=== PATIENT | female | born 1960 | race Caucasian/White ===

== ENCOUNTER 2018-09-07 12:59 | Emergency (ER) | payer BC, OTHER ==
[~2018-09-07] VITALS: Ht 165.1 cm; Wt 72.6 kg
[~2018-09-07 12:59] MED LIST: ADULT LOW DOSE81 MG PO; CARAFATE1 GM/10 ML PO; COZAAR25 MG PO; MOTRIN800 MG PO; PERCOCET 10-321 EACH; PERCOCET 5-3251 EACH PO; PRILOSEC20 MG PO; SENOKOT8.6 MG PO; TRAZODONE HCL100 MG PO
== END 2018-09-07 14:38 | disposition home or self-care (01) ==
LOC: ED 12:59
PROC: 0XQJXZZ Repair Right Hand, External Approach (ICD-10-PCS; principal; 2018-09-07)
DX: S61.411A Laceration without foreign body of right hand, initial encounter (principal); I10 Essential (primary) hypertension; G47.30 Sleep apnea, unspecified; Z90.710 Acquired absence of both cervix and uterus; Z88.2 Allergy status to sulfonamides; Z79.82 Long term (current) use of aspirin; Z79.899 Other long term (current) drug therapy; Z23 Encounter for immunization; W26.8XXA Contact with other sharp object(s), not elsewhere classified, initial encounter
CPT/HCPCS: 12001; 90471; 90715; 99282-25

== ENCOUNTER 2020-06-22 05:50 | Day surgery (SDC) | payer BC, OTHER ==
--- NOTE | 2020-06-11 13:01 | NUR ---
MIKAYLA WAS HERE FOR PRE ADMIT VISIT FOR HER TOTAL LT KNEE SURGERY SHE IS HAVING ON 06/22/20. SHE DOES NOT HAVE A WALKER, SHE IS HOPING TO BORROW ONE, SHE WAS ADVISED THAT SHE NEEDS TO BRING ONE ON DAY OF SURGERY. SHE DOES NOT HAVE ANY STAIRS IN HER HOUSE BUT THERE ARE 3 STEPS TO GET INTO HER HOUSE. SHE HAS TUB WITH NO HANDHELD SHOWER HEAD. I ADVISED HER THAT A SHOWER CHAIR MAY BE HELPFULL. HE HAS A HANDICAP TOILET, THAT WAS INSTALLED FOR HER DAD WITH [employer]ANDRAILS. SHE LIVES WITH HER , HE WILL BE TAKING HER HOME FROM THE HOSPITAL AND HEPLING HER POST OP. SHE HAS PHYSICAL THERAPY APPOINTMENT ALREADY SCHEDULED. HER WILLL BE AVAILABLE TO TAKE TO APPOINTMENTS
[~2020-06-22] VITALS: Ht 165.1 cm; Wt 67.6 kg
[~2020-06-22 05:50] MED LIST changes: +CALCIUM + D3 E1 EACH PO; +FISH OIL 1,0001 EAC2 NG; +HYDROCHLOROTH12.5 MG PO; +MAGNESIUM250 MG PO; +OMEPRAZOLE20 MG PO; +ONDANSETRON ODT8 MG PO; +PROZAC20 MG PO; +VITAMIN D31250 MC1 PO; +VITAMIN K-1500 MCG SL; +VITAMIN K100 MCG PO
[2020-06-22] MEDS ORDERED: LYSINE500 MG PO (06:13)
[2020-06-22] MEDS ORDERED: MULTI VITAMIN1 EACH PO (06:13)
[2020-06-22] MEDS ORDERED: FISH OIL 1,0001 EAC2 NG (06:14)
[2020-06-22] MEDS ORDERED: SUPER B WITH V1 EACH PO (06:14)
[2020-06-22] MEDS ORDERED: MAGNESIUM200 MG PO (06:14)
--- NOTE | 2020-06-22 08:35 | NUR ---
UPDATED SPOUSE ON PATIENT IN OR.
--- NOTE | 2020-06-22 09:21 | NUR ---
06/22/20 0921 Jazzy Farris 0901- PT ARRIVES TO PACU EASILY AROUSABLE TO VOICE. PT DOES NOT ANSWER QUESTIONS AT THIS TIME. PT FALLS RIGHT BACK TO SLEEP WHEN NOT BEING TALKED TO. RESP EVEN AND UNLABORED. OXYGEN SAT LOW TO MID 90'S ON RA. CELSO DRESSING IN PLACE IS FLASHING GREEN. ON-Q PUMP INFUSING AT 4 ML/HR. CRYOCUFF PLACED TO LEFT KNEE WITH PILLOW CASE IN BETWEEN DRESSING AND CRYOCUFF. 0907- LEFT KEL HOSE AND FOOT PUMP APPLIED TO PT'S LEFT LEG AND FOOT. 0916- PT PROVIDED WITH A WARM BLANKET PER HER REQUEST.
--- NOTE | 2020-06-22 09:55 | NUR ---
PT ALERT, ORIENTED AND SUPPORTED BY HER RASHIDA. PT SEEMS INFORMED, GAVE OUTLINE OF SCHEDULE FOR TODAY. BOTH ACKNOWLEDGE, RASHIDA WILL REMAIN. ALL OTHER QUESTIONS ASKED WERE ANSWERED. PT REQUESTED PRAYER, WILL FOLLOW
--- NOTE | 2020-06-22 09:57 | NUR ---
PATIENT BACK TO ROOM FROM RECOVERY, PBTE PATIENT BECAME NAUSEATED. PHOTOGRAPHERS' MODEL GUILHERME ADMINISTERED 4MG IV ZOFRAN. NEW ORDER FOR ANTIMETIC FROM [facility] NAJERA IF ZOFRAN NOT EFFECTIVE. PATIENT DRESSING C/D/I, KRYO IN PLACE. STRONG PEDAL PULSE. PATIENT RESTING BACK WITH EYES RESTED, PROVIDED ICE WATER AND SNACKS. NO OTHER NEEDS AT THIS TIME.
--- NOTE | 2020-06-22 10:19 | NUR ---
PATIENT REPORTS ZOFRAN INEFFECTIVE WITH NAUSEA, ADMINISTERED DROPERIDOL IV. PATIENT AWAKE ON AND OFF. ASKING QUESTIONS ABOUT URINATING, REASSURED PATIENT AND PROVIDED INSTRUCTION. PATIENT HAS NO SENSATION TO URINATE AT THIS TIME, BUT FEELS NO URGE TO URINATE. SPINAL IS AT L1 AND PATIENT IS ABLE TO WIGGLE TOES, REPORTS NO PAIN AT THIS TIME.
--- NOTE | 2020-06-22 11:03 | NUR ---
CALLED TO MEDICAL/SURGICAL FLOOR TO NOTIFY PHYSICAL THERAPY THAT PATIENT WAS READY TO BE WORKED WITH. ASSISTED PATIENT TO [facility] 2 PERSON STBY ASSIST. PATIENT TOLERATED MOVEMENT WELL WITH WALKER. NO NAUSEA IMPROVED. NOTED SOME URINE LEAKAGE TO INCONTINENT PAD WHEN STANDING UP. BILL AT BEDSIDE, PROVIDED CALL LIGHT.
--- NOTE | 2020-06-22 11:26 | NUR ---
BLADDER SCAN PATIENT >999ML OF URINE IN BLADDER. PATIENT REPORTS FEELING PRESSURE, LOWER ABDOMEN APPEARS DISTENDED. STRAIGHT CATH PATIENT, BLADDER CONTINUES TO DRAIN NOW, AND WILL REMOVE CATHETER AFTER EMPTIED.
--- NOTE | 2020-06-22 11:45 | NUR ---
STRAIGHT CATH PATIENT 1475 ML OF URINE DRAINED. PATIENT REPORTS RELIEF. LUNCH ORDERED FOR PATIENT, PHYSICAL THERAPY PLANS TO SEE PATIENT @1400. PATIENT DRESSING C/D/I. STRONG PEDAL PULSE. KRYO IN PLACE. VSS. NAUSEA RELIEVED.
--- NOTE | 2020-06-22 13:26 | NUR ---
PHYSICAL THERAPY IN ROOM WITH PATIENT FOR EVALUATION. PATIENT ATE TURKEY SANDWHICH, NO NAUSEA. APPEARS AWAKE CONVERSING WITH .
--- NOTE | 2020-06-22 14:05 | NUR ---
PHYSICAL THERAPY CLEARED PATIENT TO GO HOME. PATIENT NEEDS TO VOID BEFORE MEETING CRITERIA. UP TO BATHEROOM, 1 PERSON STBY ASSIST TO BATHROOM WITH WALKER. PROVIDED INSTRUCTION ON HOW TO USE THE KRYO CUFF.
[2020-06-22] MEDS ORDERED: XARELTO10 MG PO (15:18)
[2020-06-22] MEDS ORDERED: DICLOFENAC SODI75 MG PO (15:19)
[2020-06-22] MEDS ORDERED: ASPIRIN EC325 MG PO (15:19)
[2020-06-22] MEDS ORDERED: OXYCODONE HCL5 MG PO (15:19)
[2020-06-22] MEDS ORDERED: GABAPENTIN600 MG PO (15:19)
--- NOTE | 2020-06-22 15:30 | NUR ---
ADMINISTERING IV ANTIBIOTIC, BEGAN TO BURN WITH INFUSION. STOPPED, FLUSHED LINE. APPEARS PUFFY. DC IV, CATH INTACT. DR. LUNA INTO ROOM, UPDATED ON PATIENT CARE. NEW ORDER FOR KEFLEX 500 MG PO ONCE. DISCUSSED PATIENT UNABLE TO VOID. PATIENT HAS BEEN UP TWO TIMES, PATIENT STATES " I FEEL A LITTLE MORE SENSATION DOWN THERE BUT NOT THE URGE TO GO".
--- NOTE | 2020-06-22 15:40 | NUR ---
PT RESTING IN BED AT THIS TIME WITH SPOUSE AT BEDSIDE. ICE WATER AND COFFEE REILLED. WARM BLANKETS PROVIDED. PT STATES SHE "IS GREAT OTHER THAN CAN'T PEE." CALL LIGHT WITHIN REACH, WILL CONT TO MONITOR URINARY FUNCTION.
--- NOTE | 2020-06-22 16:43 | OR ---
[facility] [address] [place], [place] [address] Signed DATE OF OPERATION: 06/22/2020 SURGEON: Wade Santos MD PREOPERATIVE DIAGNOSIS: Severe degenerative joint disease, both knees. POSTOPERATIVE DIAGNOSIS: Severe degenerative joint disease, both knees. PROCEDURES PERFORMED: 1. Left total knee arthroplasty with Bang. 2. Biopsy, medial capsular mass. ASSISTANTS: 1. Pushpa Mcintyre PA-C, Pushpa was present and critical for all portions of procedure. 2. JAYDA Mix. ANESTHESIA: Spinal with adductor canal block. ESTIMATED BLOOD LOSS: 200 mL. TOURNIQUET TIME: Zero. Multiple biopsies were taken of the medial intracapsular mass. IMPLANTS: Jean-Paul Triathlon size 3, 12 mm insert and 32 mm patella. 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 She has had worsening of her arthritis over the years, has been treated nonoperatively with less improvement recently. Risks and benefits of operative treatment were discussed with her, and she elected to proceed. DESCRIPTION OF PROCEDURE: Electronically Signed By: WADE SANTOS MD 06/22/20 1643 PATIENT NAME: NICOLASA KULKARNI OPERATIVE REPORT DATE OF : 58 REPORT #: [id number] PHYSICIAN: WADE SANTOS MD PCP: CAMP[facility] SPARKS REPORT IS CONFIDENTIAL AND NOT TO BE RELEASED WITHOUT AUTHORIZATION [facility] [address] [place], [place] [address] Signed Once consent was obtained, she was taken to the operating room. After adequate anesthesia, she was placed on operating room table. All downside pressure points well padded. The left leg was prepped and draped in a standard sterile fashion. The knee was approached through standard anterior incision, taken through the skin and subcutaneous tissue. Medial skin flap was made. A sub-vastus approach was obtained, and the patella was mobilized laterally. The infrapatellar fat pad was excised and the MCL was elevated with a sleeve around the posteromedial corner. It was noted at this time that there was a mass or a lump in the medial capsule right at the joint line. This was approximately 2-3 cm distal to the VMO. At this point, we left it alone. The knee was flexed. The anterior horns of menisci were transected and the ACL was transected. The checkpoints were then placed for the Bang and the two computer rays, the distal wound placed through percutaneous incisions in the anteromedial tibia. The femoral wound placed in the medial femoral condyle . The leg was then registered with computer. Anatomical points were registered with the computer. Once this was accomplished, the osteophyte was removed. The robot was brought in and the straight cuts were made starting with the tibia and going through the femur. We then switched to the angled, soft and did the final two cuts. All bone pieces were removed. The bone cuts were inspected and found to be good. The menisci removed from the tibia. The posterior osteophytes removed off the femur, but no posterior release was performed. The trials were then positioned, and the knee was taken through range of motion. We then switched from a 9 to a 12 poly trial and the computer showed full extension and equal gaps in tension. We then cut sized and drilled the patella for a 32 patella. The distal femoral drill holes were made, and the proximal tibia was finished using the keel punch. Her bone was relatively soft, so we did elect to go with a hybrid prosthesis. The bone was pulse lavaged and packed with dry Ray-Radha. Cement was mixed and reached proper consistency, it was placed on the tibia and patella. It was also placed on the implants. Tibia was impacted in position first and all excess cement was removed. The polyethylene was snapped into position and the femur was impacted. The knee was then taken into extension . The patella was clamped into position. The excess cement was removed from the patella. The periarticular soft tissues were injected with 100 mL ropivacaine and Toradol mixture. The mass was actually noted at this time. This may be a result of the injection of the ropivacaine, however, it was felt to be fairly solid. The cement was allowed to harden. Once it was hardened sufficiently, remaining cement was removed. The On-Q pain pump was placed percutaneously into the adductor canal from the suprapatellar pouch. The arthrotomy was then closed using #2 Stratafix, followed by 0-Stratafix, the subcutaneous tissue, and katya for the skin. The wound was dressed with a CELSO wound VAC dressing, Frederic wrap, and she was taken to the recovery room in satisfactory condition. All sponge, needle, and instrument counts were correct. Electronically Signed By: WADE SANTOS MD 06/22/20 1643 PATIENT NAME: NICOLASA KULKARNI OPERATIVE REPORT DATE OF : 58 REPORT #: [id number] PHYSICIAN: WADE SANTOS MD PCP: CAMPOS SPARKS REPORT IS CONFIDENTIAL AND NOT TO BE RELEASED WITHOUT AUTHORIZATION [facility] [address] [address] Signed Wade Santos MD BA/MAYELINL /[id number] Copies: ~ Electronically Signed By: WADE SANTOS MD 06/22/20 1643 PATIENT NAME: NICOLASA KULKARNI OPERATIVE REPORT DATE OF : 58 REPORT #: [id number] PHYSICIAN: WADE SANTOS MD PCP: CAMPOS SPARKS REPORT IS CONFIDENTIAL AND NOT TO BE RELEASED WITHOUT AUTHORIZATION
--- NOTE | 2020-06-22 16:45 | NUR ---
PATIENT UP TO BATHROOM VOIDED 375, PVR <90 ML OF URINE WITH BLADDER SCANNER. PATIENT TRANSFERING AND AMBULATING WELL WITH WALKER. RATES PAIN 0/10 ON PAIN SCALE. VSS. DRESSING C/D/I, STRONG PEDAL PULSE. PATIENT MEETS CRITERIA, NOW GETTING DRESSED TO GO HOME.
--- NOTE | 2020-06-22 17:27 | NUR ---
PROVIDED PATIENT WITH DC EDUCAITON, DISCUSSED CARE WITH PATIENT AND . PROVIDED WHEELCHAIR RIDE TO FRONT. PATIENT TRANSFERED INTO PRIVATE VEHICLE WELL. ALL PATIENT BELONGINGS AND KRYO EQUIPMENT ARE WITH PATIENT.
--- NOTE | 2020-06-23 15:13 | PATH ---
[facility] [address] [place], [place] [address] Signed SPECIMEN(S): A LEFT MEDIAL KNEE MASS SPECIMEN SOURCE: A. LEFT MEDIAL KNEE MASS CLINICAL HISTORY: Osteoarthritis, left knee. FINAL PATHOLOGIC DIAGNOSIS: Soft tissue, left medial knee mass, excision: - Fibroadipose tissue with multiple areas of hemorrhage and hematomas. COMMENT: As part of [facility]' Quality Improvement Program, this case was reviewed by another member of our pathology staff. NAL:cml:C2NR MICROSCOPIC EXAMINATION: Histologic sections of all submitted blocks are examined by light microscopy. These findings, together with the gross examination, support the pathologic diagnosis. GROSS DESCRIPTION: The specimen, labeled "DM," and designated on the requisition "medial knee mass, left knee," is received in formalin and consists of multiple fragments of pink-madden to hemorrhagic soft tissue (1.6 x 1.2 x 0.4 cm in aggregate). The specimen is submitted entirely in cassette (A1). AC (under the direct supervision of a pathologist) The Gross Description was prepared using a voice recognition system. The report was reviewed for accuracy; however, sound-alike word errors, addition and/or deletions may occur. If there is any question about this report, please contact Client Services. PERFORMING LABORATORY: The technical component was performed by [facility], [address] [place] [address] (Grated Cheese Maker: Charmaine Blair MD; CLIA# [id number]). [facility], [address] [address] (CLIA# [id number]). PATIENT NAME: MIKAYLA KULKARNI PATHOLOGY DATE OF : 58 REPORT #: [id number] PHYSICIAN: JUSTIN PATHOLOGY PCP: CAMPOS SPARKS REPORT IS CONFIDENTIAL AND NOT TO BE RELEASED WITHOUT AUTHORIZATION [facility] [address] [place] [address] Signed Diagnostician: Bernarda Garber MD Pathologist Electronically Signed 06/23/2020 Copies: ~ PATIENT NAME: MIKAYLA KULKARNI PATHOLOGY DATE OF : 58 REPORT #: [id number] PHYSICIAN: JUSTIN PATHOLOGY PCP: CAMPOS SPARKS REPORT IS CONFIDENTIAL AND NOT TO BE RELEASED WITHOUT AUTHORIZATION
== END 2020-06-22 17:00 | disposition home or self-care (01) ==
LOC: DS 05:50
PROVIDERS: ATTEND Specialist
PROC: 8E0YXBZ Computer Assisted Procedure of Lower Extremity (ICD-10-PCS; 2020-06-22)
PROC: 0SBD0ZZ Excision of Left Knee Joint, Open Approach (ICD-10-PCS; 2020-06-22)
PROC: 0SRD0J9 Replacement of Left Knee Joint with Synthetic Substitute, Cemented, Open Approach (ICD-10-PCS; principal; 2020-06-22 06:45)
DX: M17.0 Bilateral primary osteoarthritis of knee (principal); M25.862 Other specified joint disorders, left knee; I10 Essential (primary) hypertension; F41.9 Anxiety disorder, unspecified; K21.9 Gastro-esophageal reflux disease without esophagitis; E55.9 Vitamin D deficiency, unspecified; Z79.899 Other long term (current) drug therapy; Z88.2 Allergy status to sulfonamides; G47.30 Sleep apnea, unspecified; Z87.891 Personal history of nicotine dependence; Z79.82 Long term (current) use of aspirin
CPT/HCPCS: 01402; 64447; 64450; 76942; 97116; 97161; C1713; C1776; J0690; J1100; J1790; J1885; J2001; J2250; J2370; J2405; J2704; J2795

== ENCOUNTER 2021-08-31 10:59 | Day surgery (SDC) | payer BC, OTHER ==
[~2021-08-31] VITALS: Ht 165.1 cm; Wt 69.5 kg
--- NOTE | ~2021-08-31 | OR ---
[facility] [address] [place], [place] [address] Draft DATE OF OPERATION: 08/31/2021 SURGEON: Jessica Palomo MD PREOPERATIVE DIAGNOSES: 1. Family history of colon cancer. 2. Known gastroesophageal reflux disease. POSTOPERATIVE DIAGNOSES: 1. Hiatal hernia with distal esophagitis. 2. Multiple gastric polyps. 3. Diverticulosis of colon. No evidence of polyps. PROCEDURES: 1. Esophagogastroduodenoscopy with biopsy. 2. Total colonoscopy to cecum. ANESTHESIA: Intravenous sedation, fentanyl 200 mcg and Versed 10 mg. INDICATION: This 61-year-old white woman is a patient of ESSIE Torres and last underwent colonoscopy in 2012 combined with upper endoscopy. At that time, she had mild chronic gastritis. Colonoscopy showed no evidence of adenomatous polyps. She does have family history of colon cancer in her mother and the patient herself had a hyperplastic polyp of the sigmoid in 2013. She is symptom-free generally speaking, having no bleeding, diarrhea or constipation problems. She has no hematemesis, dysphagia or upper abdominal pain. She is admitted to undergo upper endoscopy and colonoscopy. She understands the risk of bleeding, infection, and perforation. FINDINGS: The prep was quite good. Complete colonoscopy was undertaken of the cecum and is was normal except for diverticular change of the sigmoid and left colon. On upper endoscopy, she was noted to have chronic distal esophagitis. No evidence of Bello's epithelium and hiatal hernia. There were no other findings of concern. DESCRIPTION OF PROCEDURE: The patient was brought to the endoscopy suite, given topical lidocaine hypopharyngeal anesthesia in place, and given intravenous sedation with full cardiopulmonary PATIENT NAME: MIKAYLA KULKARNI OPERATIVE REPORT DATE OF : 58 REPORT #: [id number] PHYSICIAN: JESSICA PALOMO MD PCP: CAMPOS SPARKS REPORT IS CONFIDENTIAL AND NOT TO BE RELEASED WITHOUT AUTHORIZATION [facility] [address] [place], [place] [address] Draft monitoring. A bite block was placed. An Olympus video upper endoscope was passed in the hypopharynx. The vocal cords appeared normal. Scope was advanced to the esophagus without problem. In the distal portion, there was chronic inflammatory change with no evidence of Bello's epithelium, stricture or neoplasm. The scope was passed to the stomach, which had a small amount of bilious fluid within it. Rugal folds were normal. The antrum was normal. Pylorus was normal. Scope was passed through into the duodenum. The duodenum appeared normal. Biopsies were obtained to assess for celiac disease. The scope was withdrawn and biopsies then taken of the antrum for both ZEINAB and pathologic testing. Retroflexed view was undertaken showing a moderate-sized hiatal hernia. There were numerous gastric polyps, likely benign. A underwriting sales representative polyp was excised. The scope was withdrawn to the distal esophagus where chronic inflammatory change of the mucosa was noted. There was a very low-grade Schatzki's ring. Biopsies were obtained. The scope was further withdrawn and biopsies taken of the mid esophagus. The remaining esophagus was normal. Plans were then made for colonoscopy. Additional sedation was given including an additional amount of fentanyl and Versed. Digital rectal examination was normal. The Olympus video colonoscope was passed in the rectum and manipulated throughout the colon. Passage to the sigmoid was somewhat challenging on the basis of angulation deformity that was accomplished safely. She did have diverticulosis as well. The scope was advanced to the cecum. The ileocecal valve and appendiceal orifice were normal. Scope was withdrawn from that point. Examination throughout showed no sign of abnormality, only diverticular changes of the sigmoid and left colon. Retroflexed view of the rectum was normal. Scope was removed and the patient was taken to the recovery room in good condition. CONCLUDING DIAGNOSIS: Distal esophagitis with hiatal hernia; will need to ascertain if the patient is currently on medication; her medicine list does not indicate that at this time. The polyps of the stomach would likely be related to use of PPI medication. Left colon, only diverticulosis was noted. There was no evidence of polyp or neoplasm. I would recommend repeat colonoscopy in 5 years based on current guidelines for 1st degree relatives of those with family history of colon cancer (mother). She will otherwise return to the ongoing care of [facility]. PATIENT NAME: MIKAYLA KULKARNI OPERATIVE REPORT DATE OF : 58 REPORT #: [id number] PHYSICIAN: JESSICA PALOMO MD PCP: CAMPOS SPARKS REPORT IS CONFIDENTIAL AND NOT TO BE RELEASED WITHOUT AUTHORIZATION [facility] [address] [place], [place] [address] Draft MD ANITHA Mills/MODL /[id number] cc: ESSIE Torres Copies: CAMPOS SPARKS ~ PATIENT NAME: MIKAYLA KULKARNI OPERATIVE REPORT DATE OF : 58 REPORT #: [id number] PHYSICIAN: JESSICA PALOMO MD PCP: CAMPOS SPARKS REPORT IS CONFIDENTIAL AND NOT TO BE RELEASED WITHOUT AUTHORIZATION
[~2021-08-31 10:59] MED LIST changes: +ASPIRIN EC325 MG PO; +CALTRATE 600 +1 EAC1 PO; +DICLOFENAC SODI75 MG PO; +GABAPENTIN600 MG PO; +IBUPROFEN600 MG PO; +LYSINE500 MG PO; +MAGNESIUM200 MG PO; +MULTI VITAMIN1 EACH PO; +OXYCODONE HCL5 MG PO; +RED YEAST RICE600 MG PO; +SUPER B WITH V1 EACH PO; +XARELTO10 MG PO
--- NOTE | 2021-08-31 13:46 | NUR ---
08/31/21 1346 Isabella Clay 1343 PATIENT ARRIVES TO PACU RESTING WITH EYES CLOSED. OPENS EYES WITH VERBAL STIMULI, BACK TO SLEEP WHEN NOT STIMULATED. RESP EVEN AND UNLABORED, ROOM AIR SATS >95%.
--- NOTE | 2021-09-01 16:04 | PATH ---
[facility] [address] [facility] [place], [place] [address] Signed SPECIMEN(S): A DUODENAL BIOPSY SPECIMEN(S): B ANTRUM/PYLORUS BIOPSY SPECIMEN(S): C STOMACH POLYP SPECIMEN(S): D LOW ESOPHAGEAL BIOPSY SPECIMEN(S): E MID ESOPHAGEAL BIOPSY SPECIMEN SOURCE: A. DUODENAL BIOPSY B. ANTRUM/PYLORUS BIOPSY C. STOMACH POLYP D. LOW ESOPHAGEAL BIOPSY E. MID ESOPHAGEAL BIOPSY CLINICAL HISTORY: Esophagogastroduodenoscopy, colonoscopy. History of gastritis, family history of colon cancer. Post: Hiatal hernia, distal esophagitis, gastric polyp, diverticulosis. FINAL PATHOLOGIC DIAGNOSIS: A. Duodenum, biopsy: - Duodenal mucosa with no significant pathologic changes. B. Stomach, antrum/pylorus, biopsy: - Gastric antral mucosa with no significant pathologic changes. - Negative for Helicobacter pylori with HE stains. C. Stomach, polypectomy: - Fundic gland polyp. D. Esophagus, lower, biopsy: - Squamoglandular mucosa with no significant pathologic changes. E. Esophagus, mid, biopsy: - Esophageal squamous mucosa with no significant pathologic changes. - Fragment of gastric oxyntic mucosa, suggestive of gastric heterotopia/inlet patch. BRP:cml:C2NR MICROSCOPIC EXAMINATION: Histologic sections of all submitted blocks are examined by light microscopy. These findings, together with the gross examination, support the pathologic diagnosis. GROSS DESCRIPTION: Five specimens are received in five containers, labeled "DM." PATIENT NAME: SHADMIKAYLA PATHOLOGY DATE OF : 58 REPORT #: [id number] PHYSICIAN: BERNABE WHALEN PCP: CAMPOS SPARKS REPORT IS CONFIDENTIAL AND NOT TO BE RELEASED WITHOUT AUTHORIZATION [facility] [address] [place], [place] [address] Signed A. The specimen, labeled "DM, duodenum biopsy," is received in formalin and consists of two madden soft tissue fragments that measure 0.1-0.3 cm in greatest dimension. The specimen is entirely submitted in cassette (A1). B. The specimen, labeled "DM, antrum biopsy," is received in formalin and consists of two madden soft tissue fragments that measure 0.2-0.3 cm in greatest dimension. The specimen is entirely submitted in cassette (B1). C. The specimen, labeled "DM, stomach polyp," is received in formalin and consists of two madden soft tissue fragments that measure 0.2 cm in greatest dimension. The specimen is entirely submitted in cassette (C1). D. The specimen, labeled "DM, lower esophagus biopsy," is received in formalin and consists of five madden soft tissue fragments that measure 0.1-0.2 cm in greatest dimension. The specimen is entirely submitted in cassette (D1). E. The specimen, labeled "DM, mid esophagus biopsy," is received in formalin and consists of four madden soft tissue fragments that measure 0.1-0.2 cm in greatest dimension. The specimen is entirely submitted in cassette (E1). JS (under the direct supervision of a pathologist) The Gross Description was prepared using a voice recognition system. The report was reviewed for accuracy; however, sound-alike word errors, addition and/or deletions may occur. If there is any question about this report, please contact Client Services. PERFORMING LABORATORY: The technical component was performed by [facility], [address] [place] [id number] (Door Repairman: Charmaine Blair MD; CLIA# [id number]). Professional interpretation was performed by [facility], [facility] branch, [address] [address] (CLIA# [id number]). Diagnostician: Danny Singleton MD Pathologist Electronically Signed 09/01/2021 Copies: PATIENT NAME: MIKAYLA KULKARNI PATHOLOGY DATE OF : 58 REPORT #: [id number] PHYSICIAN: BERNABE PATHOLOGY PCP: CAMPOS SPARKS REPORT IS CONFIDENTIAL AND NOT TO BE RELEASED WITHOUT AUTHORIZATION [facility] [address] [place], [place] [address] Signed ~ PATIENT NAME: MIKAYLA KULKARNI PATHOLOGY DATE OF : 58 REPORT #: [id number] PHYSICIAN: BERNABE PATHOLOGY PCP: CAMPOS SPARKS REPORT IS CONFIDENTIAL AND NOT TO BE RELEASED WITHOUT AUTHORIZATION
== END 2021-08-31 14:40 | disposition home or self-care (01) ==
LOC: OPS 10:59 → DS 14:00 → OPS 14:40
PROVIDERS: ATTEND Surgery
PROC: 0DB78ZX Excision of Stomach, Pylorus, Via Natural or Artificial Opening Endoscopic, Diagnostic (ICD-10-PCS; principal; 2021-08-31 12:00)
PROC: 0DJD8ZZ Inspection of Lower Intestinal Tract, Via Natural or Artificial Opening Endoscopic (ICD-10-PCS; 2021-08-31 12:00)
DX: K31.7 Polyp of stomach and duodenum (principal); K21.9 Gastro-esophageal reflux disease without esophagitis; K20.90 Esophagitis, unspecified without bleeding; K44.9 Diaphragmatic hernia without obstruction or gangrene; I10 Essential (primary) hypertension; Z80.0 Family history of malignant neoplasm of digestive organs; Z90.49 Acquired absence of other specified parts of digestive tract; Z90.711 Acquired absence of uterus with remaining cervical stump; Z88.1 Allergy status to other antibiotic agents
CPT/HCPCS: 99153; G0500; J0690; J2250; J3010

== ENCOUNTER 2023-03-14 21:51 | Observation (INO) | payer BC, OTHER ==
[~2023-03-14] VITALS: Ht 165.1 cm; Wt 75.2 kg
--- OUTSIDE RECORDS SUMMARY | ~2023-03-14 | XMS | Continuity of Care Document ---
Demographics + + + | Address | [address] | | | [place] [address] | + + + | Preferred Language | Unknown | + + + | Marital Status | | + + + | Anglican Affiliation | Unknown | + + + | Race | White | + + + | Ethnic Group | Not or | + + + Author + + + | Author | [place] | + + + | Organization | [place] | + + + | Address | [address] | | | [place] [address] | + + + | Phone | | + + + Care Team Providers + + + + | Care Cabin Supervisor Name | Role | Phone | + [...] + + + | (no date) | Sulfa (Sulfonamide | [facility] | (unknown) | | | Antibiotics) | | | + + + + + | (no date) | trimethoprim | [facility] | (unknown) | + + + + + Encounters No information. Functional Status No information. Immunizations + + + + | date | description | facility | + + + + | 2018-09-07 00:00 | Tdap | [facility] | + + + + | 2018-09-07 00:00 | Tdap | [facility] | + + + + Medications + + + + | date | description | facility | + + + + | 2022-06-14 00:00 | FLUOXETINE HCL | [facility] | + + + + | 2022-08-01 00:00 | FLUOXETINE HCL | [facility] | + + + + | 2022-06-14 00:00 | ONDANSETRON | [facility] | + + + + | 2022-06-14 00:00 | ONDANSETRON | [facility] | + + + + | 2020-06-22 00:00 | OXYCODONE HCL | [facility] | + + + + | 2020-06-22 00:00 | OXYCODONE HCL | [facility] | + + + + | 2022-08-01 00:00 | OXYCODONE HCL | [facility] | + + + + | 2022-06-14 00:00 | OXYCODONE | [facility] | | | HCL/ACETAMINOPHEN | | + + + + | 2022-08-01 00:00 | OXYCODONE | [facility] | | | HCL/ACETAMINOPHEN | | + + + + | 2022-06-14 00:00 | OXYCODONE | [facility] | | | HCL/ACETAMINOPHEN | | + + + + | 2022-08-01 00:00 | OXYCODONE | [facility] | | | HCL/ACETAMINOPHEN | | + + + + | 2020-06-22 00:00 | RIVAROXABAN | [facility] | + + + + | 2020-06-22 00:00 | RIVAROXABAN | [facility] | + + + + | 2022-08-01 00:00 | RIVAROXABAN | [facility] | + + + + | 2022-06-14 00:00 | CALCIUM CARBONATE/VITAMIN | [facility] | | | D3 | | + + + + | 2022-08-01 00:00 | CALCIUM CARBONATE/VITAMIN | [facility] | | | D3 | | + + + + | 2022-08-01 00:00 | VITAMIN K2 | [facility] | + + + + | 2022-06-14 00:00 | Phytonadione (Vit K1) | [facility] | + + + + | 2022-08-01 00:00 | Phytonadione (Vit K1) | [facility] | + + + + | 2022-06-14 00:00 | IBUPROFEN | [facility] | + + + + | 2022-08-01 00:00 | IBUPROFEN | [facility] | + + + + | 2022-06-14 00:00 | OMEPRAZOLE | [facility] | + + + + | 2022-08-01 00:00 | OMEPRAZOLE | [facility] | + + + + | 2020-06-22 00:00 | ASPIRIN | [facility] | + + + + | 2020-06-22 00:00 | ASPIRIN | [facility] | + + + + | 2022-06-14 00:00 | LYSINE | [facility] | + + + + | 2022-08-01 00:00 | LYSINE | [facility] | + + + + | 2022-06-14 00:00 | PHYTONADIONE | [facility] | + + + + | 2022-06-14 00:00 | SUCRALFATE | [facility] | + + + + | 2022-08-01 00:00 | SUCRALFATE | [facility] | + + + + | 2022-06-14 00:00 | RED YEAST RICE | [facility] | + + + + | 2022-08-01 00:00 | RED YEAST RICE | [facility] | + + + + | 2022-06-14 00:00 | ASPIRIN | [facility] | + + + + | 2022-08-01 00:00 | ASPIRIN | [facility] | + + + + | 2020-06-22 00:00 | GABAPENTIN | [facility] | + + + + | 2020-06-22 00:00 | GABAPENTIN | [facility] | + + + + | 2022-08-01 00:00 | GABAPENTIN | [facility] | + + + + | 2022-06-14 00:00 | MAGNESIUM OXIDE | [facility] | + + + + | 2022-08-01 00:00 | MAGNESIUM OXIDE | [facility] | + + + + | 2022-06-14 00:00 | ONDANSETRON | [facility] | + + + + | 2022-08-01 00:00 | ONDANSETRON | [facility] | + + + + | 2022-06-14 00:00 | SENNOSIDES | [facility] | + + + + | 2022-08-01 00:00 | SENNOSIDES | [facility] | + + + + | 2022-08-01 00:00 | BIOTIN | [facility] | + + + + | 2022-06-14 00:00 | HYDROCHLOROTHIAZIDE | [facility] | + + + + | 2022-08-01 00:00 | HYDROCHLOROTHIAZIDE | [facility] | + + + + | 2022-06-14 00:00 | Cholecalciferol (Vitamin | [facility] | | | D3) | | + + + + | 2022-08-01 00:00 | Cholecalciferol (Vitamin | [facility] | | | D3) | | + + + + | 2020-06-22 00:00 | DICLOFENAC SODIUM | [facility] | + + + + | 2020-06-22 00:00 | DICLOFENAC SODIUM | [facility] | + + + + | 2022-06-14 00:00 | TRAZODONE HCL | [facility] | + + + + | 2022-08-01 00:00 | TRAZODONE HCL | [facility] | + + + + | 2022-06-14 00:00 | LOSARTAN POTASSIUM | [facility] | + + + + | 2022-08-01 00:00 | LOSARTAN POTASSIUM | [facility] | + + + + Problems + + + + | date | description | facility | + + + + | 2018-09-07 00:00 | Laceration of hand | [facility] | + + + + | 2018-09-07 00:00 | Laceration of hand | [facility] | + + + + | 2022-06-06 15:04 | MEDIAL EPICONDYLITIS, | [facility] | | | RIGHT ELBOW | | + + + + | 2022-06-24 00:01 | OTH SPECIFIC JOINT | [facility] | | | DERANGEMENTS OF RIGHT | | | | SHOULDER, NEC | | + + + + | 2022-07-15 11:29 | BILATERAL PRIMARY | [facility] | | | OSTEOARTHRITIS OF HIP | | + + + + | 2022-07-15 11:29 | UNILATERAL PRIMARY | [facility] | | | OSTEOARTHRITIS, UNSPE | | + + + + | 2022-07-15 11:29 | UNILATERAL PRIMARY | [facility] | | | OSTEOARTHRITIS, RIGHT KNEE | | + + + + | 2022-07-15 11:29 | EFFUSION, RIGHT KNEE | [facility] | + + + + | 2022-08-01 08:48 | VITAMIN D DEFICIENCY, | [facility] | | | UNSPECIFIED | | + + + + | 2022-08-01 08:48 | HYPERLIPIDEMIA, | [facility] | | | UNSPECIFIED | | + + + + | 2022-08-01 08:48 | OBSTRUCTIVE SLEEP APNEA | [facility] | | | (ADULT) (PEDIATRIC) | | + + + + | 2022-08-01 08:48 | OTHER ACUTE POSTPROCEDURAL | [facility] | | | PAIN | | + + + + | 2022-08-01 08:48 | Essential (primary) | [facility] | | | hypertension | | + + + + | 2022-08-01 08:48 | GASTRO-ESOPHAGEAL REFLUX | [facility] | | | DISEASE WITHOUT ESOPHAGIT | | + + + + | 2022-08-01 08:48 | UNILATERAL PRIMARY | [facility] | | | OSTEOARTHRITIS, UNSPE | | + + + + | 2022-08-01 08:48 | UNILATERAL PRIMARY | [facility] | | | OSTEOARTHRITIS, RIGHT KNEE | | + + + + | 2022-08-01 08:48 | PERSONAL HISTORY OF | [facility] | | | NICOTINE DEPENDENCE | | + + + + | 2022-08-01 08:48 | ALLERGY STATUS TO | [facility] | | | SULFONAMIDES STATUS | | + + + + | 2022-08-11 08:25 | UNILATERAL PRIMARY | [facility] | | | OSTEOARTHRITIS, RIGHT KNEE | | + + + + | 2022-08-11 08:25 | AFTERCARE FOLLOWING JOINT | [facility] | | | REPLACEMENT SURGERY | | + + + + | 2022-08-11 08:25 | 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 | | + + + + | 2022-09-13 08:20 | UNILATERAL PRIMARY | [facility] | | | OSTEOARTHRITIS, RIGHT KNEE | | + + + + | 2022-09-13 08:20 | AFTERCARE FOLLOWING JOINT | [facility] | | | REPLACEMENT SURGERY | | + + + + | 2022-09-13 08:20 | 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
--- OUTSIDE RECORDS SUMMARY | ~2023-03-14 | XMS | Continuity of Care Document ---
Demographics + + + | Address | [address] | | | [place] [address] | + + + | Preferred Language | Unknown | + + + | Marital Status | | + + + | Quaker Affiliation | Unknown | + + + | Race | White | + + + | Ethnic Group | Not or | + + + Author + + + | Author | [place] | + + + | Organization | [place] | + + + | Address | [address] | | | [place] [address] | + + + | Phone | | + + + Care Team Providers + + + + | Care Helper Metal Hanging Name | Role | Phone | + [...] + | 2018-09-07 00:00 | Tdap | [facility] | + + + + | 2018-09-07 00:00 | Tdap | [facility] | + + + + Medications + + + + | date | description | facility | + + + + | 2022-06-14 00:00 | FLUOXETINE HCL | [facility] | + + + + | 2022-08-01 00:00 | FLUOXETINE HCL | [facility] | + + + + | 2022-06-14 00:00 | ONDANSETRON | [facility] | + + + + | 2022-06-14 00:00 | ONDANSETRON | [facility] | + + + + | 2020-06-22 00:00 | OXYCODONE HCL | [facility] | + + + + | 2020-06-22 00:00 | OXYCODONE HCL | [facility] | + + + + | 2022-08-01 00:00 | OXYCODONE HCL | [facility] | + + + + | 2022-06-14 00:00 | OXYCODONE | [facility] | | | HCL/ACETAMINOPHEN | | + + + + | 2022-08-01 00:00 | OXYCODONE | [facility] | | | HCL/ACETAMINOPHEN | | + + + + | 2022-06-14 00:00 | OXYCODONE | [facility] | | | HCL/ACETAMINOPHEN | | + + + + | 2022-08-01 00:00 | OXYCODONE | [facility] | | | HCL/ACETAMINOPHEN | | + + + + | 2020-06-22 00:00 | RIVAROXABAN | [facility] | + + + + | 2020-06-22 00:00 | RIVAROXABAN | [facility] | + + + + | 2022-08-01 00:00 | RIVAROXABAN | [facility] | + + + + | 2022-06-14 00:00 | CALCIUM CARBONATE/VITAMIN | [facility] | | | D3 | | + + + + | 2022-08-01 00:00 | CALCIUM CARBONATE/VITAMIN | [facility] | | | D3 | | + + + + | 2022-08-01 00:00 | VITAMIN K2 | [facility] | + + + + | 2022-06-14 00:00 | Phytonadione (Vit K1) | [facility] | + + + + | 2022-08-01 00:00 | Phytonadione (Vit K1) | [facility] | + + + + | 2022-06-14 00:00 | IBUPROFEN | [facility] | + + + + | 2022-08-01 00:00 | IBUPROFEN | [facility] | + + + + | 2022-06-14 00:00 | OMEPRAZOLE | [facility] | + + + + | 2022-08-01 00:00 | OMEPRAZOLE | [facility] | + + + + | 2020-06-22 00:00 | ASPIRIN | [facility] | + + + + | 2020-06-22 00:00 | ASPIRIN | [facility] | + + + + | 2022-06-14 00:00 | LYSINE | [facility] | + + + + | 2022-08-01 00:00 | LYSINE | [facility] | + + + + | 2022-06-14 00:00 | PHYTONADIONE | [facility] | + + + + | 2022-06-14 00:00 | SUCRALFATE | [facility] | + + + + | 2022-08-01 00:00 | SUCRALFATE | [facility] | + + + + | 2022-06-14 00:00 | RED YEAST RICE | [facility] | + + + + | 2022-08-01 00:00 | RED YEAST RICE | [facility] | + + + + | 2022-06-14 00:00 | ASPIRIN | [facility] | + + + + | 2022-08-01 00:00 | ASPIRIN | [facility] | + + + + | 2020-06-22 00:00 | GABAPENTIN | [facility] | + + + + | 2020-06-22 00:00 | GABAPENTIN | [facility] | + + + + | 2022-08-01 00:00 | GABAPENTIN | [facility] | + + + + | 2022-06-14 00:00 | MAGNESIUM OXIDE | [facility] | + + + + | 2022-08-01 00:00 | MAGNESIUM OXIDE | [facility] | + + + + | 2022-06-14 00:00 | ONDANSETRON | [facility] | + + + + | 2022-08-01 00:00 | ONDANSETRON | [facility] | + + + + | 2022-06-14 00:00 | SENNOSIDES | [facility] | + + + + | 2022-08-01 00:00 | SENNOSIDES | [facility] | + + + + | 2022-08-01 00:00 | BIOTIN | [facility] | + + + + | 2022-06-14 00:00 | HYDROCHLOROTHIAZIDE | [facility] | + + + + | 2022-08-01 00:00 | HYDROCHLOROTHIAZIDE | [facility] | + + + + | 2022-06-14 00:00 | Cholecalciferol (Vitamin | [facility] | | | D3) | | + + + + | 2022-08-01 00:00 | Cholecalciferol (Vitamin | [facility] | | | D3) | | + + + + | 2020-06-22 00:00 | DICLOFENAC SODIUM | [facility] | + + + + | 2020-06-22 00:00 | DICLOFENAC SODIUM | [facility] | + + + + | 2022-06-14 00:00 | TRAZODONE HCL | [facility] | + + + + | 2022-08-01 00:00 | TRAZODONE HCL | [facility] | + + + + | 2022-06-14 00:00 | LOSARTAN POTASSIUM | [facility] | + + + + | 2022-08-01 00:00 | LOSARTAN POTASSIUM | [facility] | + + + + Problems + + + + | date | description | facility | + + + + | 2018-09-07 00:00 | Laceration of hand | [facility] | + + + + | 2018-09-07 00:00 | Laceration of hand | [facility] | + + + + | 2022-06-06 [...]
[~2023-03-14 21:51] MED LIST changes: +BIOTIN2500 MCG PO; +CITRUCEL POWDE454 GM PO; +ONDANSETRON ODT4 MG PO; +VITAMIN K240 MCG PO
--- NOTE | 2023-03-15 00:50 | NUR ---
PT ARRIVES VIA STRETCHER WITH DARCI Crow RN, PT ALERT AND ORIENTED. PT UP TO BATHROOM TO VOID, URINE SENT FOR LAB. PT TOLERATED AMBULATION WITH STEADY GAIT. WHEN ASKED, SHE REPORTED "I DO FEEL A LITTLE DIZZY" NO COMPLAINTS OF HANANE OR NAUSEA.
[2023-03-15 01:06] VITALS: BP 120/82
--- NOTE | 2023-03-15 01:30 | NUR ---
ADMISSION/ASSESSMENT/NIH COMPLETED SCORED 1
[2023-03-15 03:45] VITALS: BP 120/73
--- NOTE | 2023-03-15 03:48 | NUR ---
PT UP AMBULATED TO BATHROOM SUPERVISED, STEADY GAIT, PT REPORTS NO PAIN OR NAUSEA, SHE REPORTS THAT NUMBNESS/TINGLING IN HER RIGHT FOOT AND HER LIP HAS FULLY RESOLVED, SHE STILL HAS NUMBNESS/TINGLING AT RIGHT HAND.
[2023-03-15 06:24] VITALS: BP 137/75
[2023-03-15] MEDS ORDERED: TRAZODONE HCL50 MG PO (07:10)
--- NOTE | 2023-03-15 07:35 | NUR ---
REPORT REC'D FROM VIDAL CARROLL. PT TAKEN DOWN FOR MRI AROUND 0715. PT AWAKE, ALERT, TALKING PRIOR TO GOING DOWN TO MRI. SINUS RHYTHM, 50-60s ON YARD COORDINATOR. FULL ASSESSMENT TO BE DONE ONCE PATIENT RETURNS.
[2023-03-15 07:52] VITALS: BP 140/74
--- NOTE | 2023-03-15 08:02 | NUR ---
PATIENT RETURNS FROM MRI AND IS NOW BACK ON GREY PERCHER. PT REPORTS THAT THE NUMBNESS REMAINS IN RIGHT HAND, MOVES INTO FOREARM AREA, AND HAS BEEN COMING AND GOING. PT STATES NUMBNESS IN RIGHT LEG HAS RESOLVED, AND IN LOWER LIP AREA. NO FACIAL DROOP APPRECIATED. PT SPEAKING IN CLEAR SENTENCES AND REMAINS ALERT AND ORIENTED. SOLUTIONS EXECUTIVE SECURITY ARE EQUAL X4 EXT. PT'S PEDAL DORAL PEDAL PULSE ON RIGHT FOOT IS WEAKER THAN LEFT FOOT. PT REPORTS HAVING A BLOOD CLOT IN THIS LEG YEARS AGO AFTER A SURGERY, WHICH RESULTED IN HER TAKING ASPIRIN DAILY FOR. PT NOW SITTING UP ON EDGE OF BED TO EAT BREAKFAST. PT'S DAUGHTER ARRIVES TO ROOM. AM MEDS TO BE GIVEN. NIH TO BE COMPLETED WELL. WILL CONTINUE TO MONITOR.
--- NOTE | 2023-03-15 08:21 | NUR ---
QUALITY CONTROL MICROBIOLOGIST IN ROOM AT THIS TIME. PT FINISHES HER BREAKFAST. BACK IN BED INDEPENDENTLY.
--- OUTSIDE RECORDS SUMMARY | 2023-03-15 08:56 | XMS | Continuity of Care Document ---
Demographics + + + | Address | [facility] [address] | | | [place] [address] | + + + | Preferred Language | Unknown | + + + | Marital Status | | + + + | [employer] Affiliation | Unknown | + + + | Race | White | + + + | Ethnic Group | Not or | + + + Author + + + | Author | [facility] | + + + | Organization | [facility] | + + + | Address | [address] | | | [place] [address] | + + + | Phone | | + + + Care Team Providers + + + + | Care Fryer Line Helper Name | Role | Phone | + + + + Unavailable | Unavailable | + + + + Unavailable | Unavailable | + + + + Unavailable | Unavailable | + + + + Allergies and Intolerances + + + + + | date | description | facility | type | + + + + + | (no date) | Trimethoprim [facility] | | + + + + + | (no date) | Rash | [facility] | | + + + + + | (no date) | Trimethoprim | [facility] ([facility] | | + + + + + Encounters No information. Functional Status No information. Immunizations + + + + | date | description | facility | + + + + | 2018-09-07 00:00 | Tdap | [facility] | + + + + | 2018-09-07 00:00 | Tdap | [facility] | + + + + Medications + + + + | date | description | facility | + + + + | 2022-06-14 00:00 | FLUOXETINE HCL | [facility] | + + + + | 2022-08-01 00:00 | FLUOXETINE HCL | [facility] | + + + + | 2022-06-14 00:00 | ONDANSETRON | [facility] | + + + + | 2022-06-14 00:00 | ONDANSETRON | [facility] | + + + + | 2020-06-22 00:00 | OXYCODONE HCL | [facility] | + + + + | 2020-06-22 00:00 | OXYCODONE HCL | [facility] | + + + + | 2022-08-01 00:00 | OXYCODONE HCL | [facility] | + + + + | 2022-06-14 00:00 | OXYCODONE | [facility] | | | HCL/ACETAMINOPHEN | | + + + + | 2022-08-01 00:00 | OXYCODONE | [facility] | | | HCL/ACETAMINOPHEN | | + + + + | 2022-06-14 00:00 | OXYCODONE | [facility] | | | HCL/ACETAMINOPHEN | | + + + + | 2022-08-01 00:00 | OXYCODONE | [facility] | | | HCL/ACETAMINOPHEN | | + + + + | 2020-06-22 00:00 | RIVAROXABAN | [facility] | + + + + | 2020-06-22 00:00 | RIVAROXABAN | [facility] | + + + + | 2022-08-01 00:00 | RIVAROXABAN | [facility] | + + + + | 2022-06-14 00:00 | CALCIUM CARBONATE/VITAMIN | [facility] | | | D3 | | + + + + | 2022-08-01 00:00 | CALCIUM CARBONATE/VITAMIN | [facility] | | | D3 | | + + + + | 2022-08-01 00:00 | VITAMIN K2 | [facility] | + + + + | 2022-06-14 00:00 | Phytonadione (Vit K1) | [facility] | + + + + | 2022-08-01 00:00 | Phytonadione (Vit K1) | [facility] | + + + + | 2022-06-14 00:00 | IBUPROFEN | [facility] | + + + + | 2022-08-01 00:00 | IBUPROFEN | [facility] | + + + + | 2022-06-14 00:00 | OMEPRAZOLE | [facility] | + + + + | 2022-08-01 00:00 | OMEPRAZOLE | [facility] | + + + + | 2020-06-22 00:00 | ASPIRIN | [facility] | + + + + | 2020-06-22 00:00 | ASPIRIN | [facility] | + + + + | 2022-06-14 00:00 | LYSINE | [facility] | + + + + | 2022-08-01 00:00 | LYSINE | [facility] | + + + + | 2022-06-14 00:00 | PHYTONADIONE | [facility] | + + + + | 2022-06-14 00:00 | SUCRALFATE | [facility] | + + + + | 2022-08-01 00:00 | SUCRALFATE | [facility] | + + + + | 2022-06-14 00:00 | RED YEAST RICE | [facility] | + + + + | 2022-08-01 00:00 | RED YEAST RICE | [facility] | + + + + | 2022-06-14 00:00 | ASPIRIN | [facility] | + + + + | 2022-08-01 00:00 | ASPIRIN | [facility] | + + + + | 2020-06-22 00:00 | GABAPENTIN | [facility] | + + + + | 2020-06-22 00:00 | GABAPENTIN | [facility] | + + + + | 2022-08-01 00:00 | GABAPENTIN | [facility] | + + + + | 2022-06-14 00:00 | MAGNESIUM OXIDE | [facility] | + + + + | 2022-08-01 00:00 | MAGNESIUM OXIDE | [facility] | + + + + | 2022-06-14 00:00 | ONDANSETRON | [facility] | + + + + | 2022-08-01 00:00 | ONDANSETRON | [facility] | + + + + | 2022-06-14 00:00 | SENNOSIDES | [facility] | + + + + | 2022-08-01 00:00 | SENNOSIDES | [facility] | + + + + | 2022-08-01 00:00 | BIOTIN | [facility] | + + + + | 2022-06-14 00:00 | HYDROCHLOROTHIAZIDE | [facility] | + + + + | 2022-08-01 00:00 | HYDROCHLOROTHIAZIDE | [facility] | + + + + | 2022-06-14 00:00 | Cholecalciferol (Vitamin | [facility] | | | D3) | | + + + + | 2022-08-01 00:00 | Cholecalciferol (Vitamin | [facility] | | | D3) | | + + + + | 2020-06-22 00:00 | DICLOFENAC SODIUM | [facility] | + + + + | 2020-06-22 00:00 | DICLOFENAC SODIUM | [facility] | + + + + | 2022-06-14 00:00 | TRAZODONE HCL | [facility] | + + + + | 2022-08-01 00:00 | TRAZODONE HCL | [facility] | + + + + | 2022-06-14 00:00 | LOSARTAN POTASSIUM | [facility] | + + + + | 2022-08-01 00:00 | LOSARTAN POTASSIUM | [facility] | + + + + Problems + + + + | date | description | facility | + + + + | 2018-09-07 00:00 | Laceration of hand | [facility] | + + + + | 2018-09-07 00:00 | Laceration of hand | [facility] | + + + + Procedures No information. Results/Labs +--------+--------+ + +---------+--------+ + | test | date | author | facility | value | unit | | | | | | | | | interpreta | | | | | | | | tion | +--------+--------+ + +---------+--------+ + + + | Result panel 1 | + + + + + + +---------+ + + | (unknown) | (no date) | (unknown) | [facility] | (no | (units | (unknown) | | | | [facility] | [facility] | [facility] | | | | + + + + +---------+ + + + + | Result panel 2 | + + + + + + +---------+ + + | (unknown) | (no date) | (unknown) | [facility] | (no | (units | (unknown) | | | | [facility] | value) | unknown) | | | | [facility] | | | | + + + + +---------+ + + + + | Result panel 3 | + + + + + + +---------+ + + | (unknown) | (no date) | (unknown) | [facility] | (no | (units | (unknown) | | | | [facility] | value) | unknown) | | | | [facility] | | | | + + + + +---------+ + + + + | Result panel 4 | + + + + + + +---------+ + + | (unknown) | (no date) | (unknown) | [facility] | (no | (units | (unknown) | | | | [facility] | value) | unknown) | | | | [facility] | | | | + + + + +---------+ + + + + | Result panel 5 | + + + + + + +---------+ + + | (unknown) | (no date) | (unknown) | [facility] | (no | (units | (unknown) | | | | [facility] | value) | [facility]) | | | | [facility] | | | | + + + + +---------+ + + + + | Result panel 6 | + + + + + + +---------+ + + | (unknown) | (no date) | (unknown) | [facility] | (no | (units | (unknown) | | | | [facility] | value) | unknown) | | [facility] | | | | + + + + +---------+ + + + + | Result panel 7 | + + + + + + +---------+ + + | (unknown) | (no date) | (unknown) | [facility] | (no | (units | (unknown) | | | | [facility] value) | [facility]) | | | | [facility] | | | | + + + + +---------+ + + + + | Result panel 8 | + + + + + + +---------+ + + | (unknown) | (no date) | (unknown) | [facility] | (no | (units | (unknown) | | | | [facility] value) | [facility]) | | | | [facility] | | | | + + + + +---------+ + + + + | Result panel 9 | + + + + + + +---------+ + + | (unknown) | (no date) | (unknown) | [facility] | (no | (units | (unknown) | | | | [facility] value) | unknown) | | | | [facility] | | | | + + + + +---------+ + + + + | Result panel 10 | + + + + + + +---------+ + + | (unknown) | (no date) | (unknown) | [facility] | (no | (units | (unknown) | | | | [facility] value[facility] | [facility]) | | [facility] | | | | + + + + +---------+ + + + + | Result panel 11 | + + + + + + +---------+ + + | (unknown) | (no date) | (unknown) | [facility] | (no | (units | (unknown) | | | | [facility] value[facility] | [facility]) | | [facility] | | | | + + + + +---------+ + + + + | Result panel 12 | + + + + + + +---------+ + + | (unknown) | (no date) | (unknown) | [facility] | (no | (units | (unknown) | | | | [facility] value) | [facility]) | | | [facility] | | | | + + + + +---------+ + + + + | Result panel 13 | + + + + + + +---------+ + + | (unknown) | (no date) | (unknown) | [facility] | (no | (units | (unknown) | | | | [facility] value) | [facility]) | | | | [facility] | | | | + + + + +---------+ + + + + | Result panel 14 | + + + + + + +---------+ + + | (unknown) | (no date) | (unknown) | [facility] | (no | (units | (unknown) | | | | [facility] value) | [facility]) | | | | [facility] | | | | + + + + +---------+ + + + + | Result panel 15 | + + + + + + +---------+ + + | (unknown) | (no date) | (unknown) | [facility] | (no | (units | (unknown) | | | | [facility] value) | [facility]) | | | | [facility] | | | | + + + + +---------+ + + + + | Result panel 16 | + + + + + + +---------+ + + | (unknown) | (no date) | (unknown) | [facility] | (no | (units | (unknown) | | | | [facility] value) | [facility]) | | | [facility] | | | | + + + + +---------+ + + + + | Result panel 17 | + + + + + + +---------+ + + | (unknown) | (no date) | (unknown) | [facility] | (no | (units | (unknown) | | | | [facility] value) | [facility]) | | | [facility] | | | | + + + + +---------+ + + + + | Result panel 18 | + + + + + + +---------+ + + | (unknown) | (no date) | (unknown) | [facility] | (no | (units | (unknown) | | | | [facility] value) | [facility]) | | | [facility] | | | | + + + + +---------+ + + + + | Result panel 19 | + + + + + + +---------+ + + | (unknown) | (no date) | (unknown) | [facility] | (no | (units | (unknown) | | | | [facility] value) | [facility]) | | | [facility] | | | | + + + + +---------+ + + + + | Result panel 20 | + + + + + + +---------+ + + | (unknown) | (no date) | (unknown) | [facility] | (no | (units | (unknown) | | | | [facility] | [facility]) | [facility] | | | | + + + + +---------+ + + + + | Result panel 21 | + + + + + + +---------+ + + | (unknown) | (no date) | (unknown) | [facility] | (no | (units | (unknown) | | | | [facility] | [facility]) | | | [facility] | | | | + + + + +---------+ + + + + | Result panel 22 | + + + + + + +---------+ + + | (unknown) | (no date) | (unknown) | [facility] | (no | (units | (unknown) | | | | [facility] value) | [facility]) | | | [facility] | | | | + + + + +---------+ + + + + | Result panel 23 | + + + + + + +---------+ + + | (unknown) | (no date) | (unknown) | [facility] | (no | (units | (unknown) | | | | [facility] | [facility]) | | [facility] | | | | + + + + +---------+ + + + + | Result panel 24 | + + + + + + +---------+ + + | (unknown) | (no date) | (unknown) | [facility] (no | (units | (unknown) | [facility] | | [facility] | | | | + + + + +---------+ + + + + | Result panel 25 | + + + + + + +---------+ + + | (unknown) | (no date) | (unknown) | [facility] | (no | (units | (unknown) | | | | [facility] | [facility] | [facility] | | | | + + + + +---------+ + + + + | Result panel 26 | + + + + + + +---------+ + + | (unknown) | (no date) | (unknown) | [facility] | (no | (units | (unknown) | | | | [facility] | [facility] | [facility] | | | | + + + + +---------+ + + + + | Result panel 27 | + + + + + + +---------+ + + | (unknown) | (no date) | (unknown) | [facility] | (no | (units | (unknown) | | | | [facility] | [facility] | [facility] | | | | + + + + +---------+ + + + + | Result panel 28 | + + + + + + +---------+ + + | (unknown) | (no date) | (unknown) | [facility] | (no | (units | (unknown) | | | | [facility] | [facility] | | [facility] | | | | + + + + +---------+ + + + + | Result panel 29 | + + + + + + +---------+ + + | (unknown) | (no date) | (unknown) | [facility] | (no | (units | (unknown) | | | | [facility] | [facility]) | | [facility] | | | | + + + + +---------+ + + + + | Result panel 30 | + + + + + + +---------+ + + | (unknown) | (no date) | (unknown) | [facility] | (no | (units | (unknown) | | | | [facility] | [facility] | | [facility] | | | | + + + + +---------+ + + + + | Result panel 31 | + + + + + + +---------+ + + | (unknown) | (no date) | (unknown) | [facility] | (no | (units | (unknown) | | | | [facility] | [facility]) | | [facility] | | | | + + + + +---------+ + + + + | Result panel 32 | + + + + + + +---------+ + + | (unknown) | (no date) | (unknown) | [facility] | (no | (units | (unknown) | | | | [facility] | [facility]) | | [facility] | | | | + + + + +---------+ + + + + | Result panel 33 | + + + + + + +---------+ + + | (unknown) | (no date) | (unknown) | [facility] | (no | (units | (unknown) | | | | [facility] | [facility]) | | [facility] | | | | + + + + +---------+ + + + + | Result panel 34 | + + + + + + +---------+ + + | (unknown) | (no date) | (unknown) | [facility] | (no | (units | (unknown) | | | [facility] | [facility] | [facility] | | | | + + + + +---------+ + + Social History No information. Vital Signs + + + +---------+ | date | measurement | value | units | + + + +---------+ | 2022-06-14 00:00 | BMI | 25.5 | kg/m2 | + + + +---------+ | 2022-06-14 00:00 | BP_diastolic | 81 | mmHg | + + + +---------+ | 2022-06-14 00:00 | BP_systolic | 157 | mmHg | + + + +---------+ | 2022-06-14 00:00 | heart_rate | 50 | /min | + + + +---------+ | 2022-06-14 00:00 | height_metric | 165.1 | cm | + + + +---------+ | 2022-06-14 00:00 | height_standard | 65 | in | + + + +---------+ | 2022-06-14 00:00 | o2_saturation | 99 | % | + + + +---------+ | 2022-06-14 00:00 | respiration_rate | 16 | /min | + + + +---------+ | 2022-06-14 00:00 | temperature_metric | 36.67 | C | | | | | | + + + +---------+ | 2022-06-14 00:00 | | 98 | F | | | temperature_standar | | | | | d | | | + + + +---------+ | 2022-06-14 00:00 | weight_metric | 69.4 | kg | + + + +---------+ | 2022-06-14 00:00 | weight_standard | 153 | lb | + + + +---------+ | 2022-07-26 00:00 | BMI | 25.3 | kg/m2 | + + + +---------+ | 2022-07-26 00:00 | height_metric | 165.1 | cm | + + + +---------+ | 2022-07-26 00:00 | height_standard | 65 | in | + + + +---------+ | 2022-07-26 00:00 | weight_metric | 69 | kg | + + + +---------+ | 2022-07-26 00:00 | weight_standard | 152.12 | lb | + + + +---------+ | 2022-08-01 00:00 | BP_diastolic | 65 | mmHg | + + + +---------+ | 2022-08-01 00:00 | BP_systolic | 116 | mmHg | + + + +---------+ | 2022-08-01 00:00 | heart_rate | 57 | /min | + + + +---------+ | 2022-08-01 00:00 | o2_saturation | 100 | % | + + + +---------+ | 2022-08-01 00:00 | respiration_rate | 16 | /min | + + + +---------+ | 2022-08-01 00:00 | temperature_metric | 36.94 | C | | | | | | + + + +---------+ | 2022-08-01 00:00 | | 98.5 | F | | | temperature_standar | | | | | d | | | + + + +---------+"
--- NOTE | 2023-03-15 09:41 | NUR ---
DR. MCKINNEY IN TO SEE PATIENT AND DISCUSSING FINDINGS OF MRI RESULT. PT'S BILL NOW IN ROOM AND ASKING QUESTIONS.
--- NOTE | 2023-03-15 10:36 | NUR ---
OT AND PT NOW IN ROOM WORKING WITH PATIENT. PT'S REMAINS IN ROOM.
[2023-03-15 11:41] VITALS: BP 155/77
[2023-03-15] MEDS ORDERED: CLOPIDOGREL75 MG PO (13:02)
[2023-03-15] MEDS ORDERED: LO-DOSE ASPIRIN81 MG PO (13:03)
[2023-03-15] MEDS ORDERED: LIPITOR80 MG GT (13:11)
[2023-03-15] MEDS ORDERED: LIPITOR80 MG PO (13:19)
--- NOTE | 2023-03-16 22:39 | EKG ---
[facility] [address] [facility] [place] [address] Signed Sinus bradycardia Otherwise normal ECG When compared with ECG of 07-JUL-2022 23:11, No significant change was found Confirmed by Fabian Mckinney MD () on 03/16/2023 10:39:38 PM Electronically Signed By: FABIAN MCKINNEY MD 03/16/23 2239 PATIENT NAME: MIKAYLA KULKARNI Electrocardiogram DATE OF : 58 PHYSICIAN: FABIAN MCKINNEY MD REPORT #: [id number] REPORT IS CONFIDENTIAL AND NOT TO BE RELEASED WITHOUT AUTHORIZATION
== END 2023-03-15 13:31 | disposition home or self-care (01) ==
LOC: ED 21:51 → CCU 21:53 → ED 21:53 → CCU 03-15 09:53
PROVIDERS: ADMIT Family Medicine; ATTEND Family Medicine
DX: I63.9 Cerebral infarction, unspecified (principal); R29.702 NIHSS score 2; E87.6 Hypokalemia; R00.2 Palpitations; I10 Essential (primary) hypertension; E78.5 Hyperlipidemia, unspecified; Z88.1 Allergy status to other antibiotic agents; Z88.2 Allergy status to sulfonamides; Z79.899 Other long term (current) drug therapy
CPT/HCPCS: 36415; 70450; 70496; 70498; 70551; 71045; 72125; 80053; 80061; 83036; 84484; 85025; 85610; 85730; 93005; 93010; 93306; 97161; 97165; 99285 25; A9270; G0378; Q9967

== ENCOUNTER 2024-04-03 21:35 | Emergency (ER) | payer OTHER, BC ==
[~2024-04-03] VITALS: Ht 165.1 cm; Wt 76.7 kg
[~2024-04-03 21:35] MED LIST changes: +CLOPIDOGREL75 MG PO; +FLUOXETINE HCL20 MG PO; +LIPITOR80 MG GT; +LIPITOR80 MG PO; +LO-DOSE ASPIRIN81 MG PO; +TRAZODONE HCL50 MG PO
[2024-04-03] MEDS ORDERED: HYDROCODONE/ACETA 5/325 TAB PO ONE (21:45)
[2024-04-03] MEDS ORDERED: BACLOFEN10 MG PO (21:50)
[2024-04-03] MEDS ORDERED: HYDROCODON-ACE1 EA10 PO (22:34)
[2024-04-03] MEDS ORDERED: HYDROCODONE BIT/ACETAMINOPHEN 5/325 MG 1 TAB HOME.PACK PO ONE (22:45)
[2024-04-03 23:08] VITALS: BP 141/77
== END 2024-04-03 23:10 | disposition home or self-care (01) ==
LOC: ED 21:35
DX: S70.02XA Contusion of left hip, initial encounter (principal); S20.212A Contusion of left front wall of thorax, initial encounter; I10 Essential (primary) hypertension; W17.81XA Fall down embankment (hill), initial encounter; Z86.73 Personal history of transient ischemic attack (TIA), and cerebral infarction without residual deficits; Z96.653 Presence of artificial knee joint, bilateral; Z88.2 Allergy status to sulfonamides; Z88.8 Allergy status to other drugs, medicaments and biological substances; Z79.82 Long term (current) use of aspirin; Z79.899 Other long term (current) drug therapy
CPT/HCPCS: 71101; 72170; A9270

== ENCOUNTER 2025-05-08 20:49 | Emergency (ER) | payer MEDICARE, OTHER ==
[~2025-05-08] VITALS: Ht 165.1 cm; Wt 76.6 kg
[~2025-05-08 20:49] MED LIST changes: +BACLOFEN10 MG PO; +HYDROCODON-ACE1 EA10 PO
[2025-05-08] MEDS ORDERED: HYDROCODONE/ACETA 5/325 TAB PO ONE (21:30)
[2025-05-08] MEDS ORDERED: IBU800 MG PO (21:45)
[2025-05-08 22:11] VITALS: BP 132/73
== END 2025-05-08 22:11 | disposition home or self-care (01) ==
LOC: ED 20:49
DX: S63.501A Unspecified sprain of right wrist, initial encounter (principal); I10 Essential (primary) hypertension; G47.30 Sleep apnea, unspecified; E78.5 Hyperlipidemia, unspecified; Z88.2 Allergy status to sulfonamides; Z86.73 Personal history of transient ischemic attack (TIA), and cerebral infarction without residual deficits; Z88.1 Allergy status to other antibiotic agents; Z79.82 Long term (current) use of aspirin; Z79.899 Other long term (current) drug therapy; W01.0XXA Fall on same level from slipping, tripping and stumbling without subsequent striking against object, initial encounter
CPT/HCPCS: 73110; 99283